=== PATIENT | female | born 1995 | race Caucasian/White ===

== ENCOUNTER 2019-12-10 21:44 | Outpatient (CLI) | payer OTHER, SELFPAY ==
[2019-12-10 21:58] VITALS: BP 123/80; PULSE 100; TEMP 37.7; O2SAT 98
[2019-12-10 22:04] VITALS: BMI 26.6
[2019-12-10 23:19] VITALS: BP 119/77; PULSE 93; TEMP 36.9; O2SAT 98
[2019-12-11 05:43] VITALS: BP 133/80; PULSE 119; TEMP 36.9; O2SAT 99
--- NOTE | 2019-12-11 06:15 | OB.TRI.NOTE ---
- Problem List (1) 38 weeks gestation of Status: Acute (2) Irregular contractions Status: Acute History of Present Illness Date of Service: 12/10/19 Was patient seen by the physician?: No Reason For Visit: RULE OUT LABOR Date of Service: 12/10/19 Final [place]: 12/19/19 Gestational age: 38 Weeks and 6 Days History of Present Illness: Patient is a at 38.5 weeks gestation that presents to triage for contractions off and on for most of the evening. Denies any loss of fluid, vaginal bleeding and stated positive movement. Allergies amoxicillin Adverse Reaction (Verified 12/10/19 22:05) Rash Review of Systems Constitutional: Denies: Fever Eyes: Denies: Blurred vision Cardiovascular: Denies: Chest Pain Respiratory: Denies: Cough, Shortness of Breath Gastrointestinal: Denies: Abdominal Pain Genitourinary: Denies: Dysuria Physical Exam Vitals: Vital Signs Temp Pulse BP Pulse Ox 98.4 F 93 119/77 98 12/10/19 23:19 12/10/19 23:19 12/10/19 23:19 12/10/19 23:19 General: Alert Cardiovascular: Regular rate Lungs: Normal air movement Abdomen: Soft, Non Tender, Gravid Neurological: Cranial nerves II-XII grossly intact Cervix Dilation (cm): 0.5 - RN exam Station: -3 Effacement (%): 70 NST - FHR Rate Baby A Baseline: 120 Variability:: Moderate Accelerations:: 15 x 15 Decelerations:: None NST Reactive:: Yes FHR Category:: Category I Uterine Activity:: TOCO- every 3-6 minutes. Palpate mild and relaxed in between Impression/Plan at 38.5 weeks gestation to rule out labor A/P Category 1 tracing NST reactive Monitor and recheck for cervical change CE- 0.5/70/-3 (unchanged) Discharge home with labor precautions
[2019-12-11 07:12] VITALS: BP 118/79; PULSE 109; TEMP 36.3
== END 2019-12-10 23:30 | disposition home or self-care (01) ==
LOC: WPOUT 21:51 → OBT 21:54
PROVIDERS: Visit Provider Advanced Practice Midwife
DX: Z34.03 Encounter for supervision of normal first pregnancy, third trimester (principal); Z3A.38 38 weeks gestation of pregnancy
CPT/HCPCS: 59025; 59050; 99218; G0378

== ENCOUNTER 2019-12-11 08:05 | Inpatient (IN) | payer OTHER, SELFPAY ==
[2019-12-10 22:04] VITALS: BMI 26.6
[2019-12-11] VITALS (60 sets, daily range): BP systolic 97–181; BP diastolic 53–102; PULSE 81–129; RESP 18; TEMP 35.9–38.5; O2SAT 91–100; BMI 26.6
--- NOTE | 2019-12-11 06:25 | OB.TRI.HP_ITS ---
- Problem List (1) 38 weeks gestation of Status: Acute (2) Irregular contractions Status: Acute History of Present Illness Date of Service: 12/11/19 Was patient seen by the physician?: No Reason For Visit: R/O LABOR Date of Service: 12/11/19 Final [place]: 12/19/19 Gestational age: 38 Weeks and 6 Days History of Present Illness: Patient is a at 38.6 weeks gestation that returns to triage for increasing frequency and pain with contractions. Denies any loss of fluid or vaginal bleedi ng. Discharged from triage last evening and had no cervical change. Allergies amoxicillin Adverse Reaction (Verified 12/10/19 22:05) Rash Review of Systems Constitutional: Denies: Chills, Fever Cardiovascular: Denies: Chest Pain Respiratory: Denies: Cough, Shortness of Breath Genitourinary: Denies: Dysuria Physical Exam General: Alert, Oriented x3 Cardiovascular: Regular rate Lungs: Normal air movement Abdomen: Soft, Non Tender, Gravid Neurological: Cranial nerves II-XII grossly intact NST - FHR Rate Baby A Baseline: 135 Variability:: Moderate Accelerations:: 15 x 15 Decelerations:: None NST Reactive:: Yes FHR Category:: Category I Uterine Activity:: 3-5 MINUTTES Impression/Plan at 38.6 weeks gestation for rule out labor A/P Category 1 tracing NST reactive CE- 2/70/-2 (changed from earlier) Continue to monitor and recheck for cervical change
--- NOTE | 2019-12-11 08:13 | PCM.HP.OB ---
- Problem List (1) 38 weeks gestation of Status: Acute History Date of Admission: 12/11/19 Final [place]: 12/19/19 Gestational age: 38 Weeks and 6 Days History of this : This is a 24 year-old, G [1], P [0], at 38.6 weeks gestational age that presents in spontaneous labor. Patient reports contractions since yesterday. She came into triage last night and made no cervical change and was discharged home. Patient returns this morning for an increase in frequency and intensity of contractions. Denies any loss of fluid or vaginal bleeding. Positive movement. has been uncomplicated. Allergies amoxicillin Adverse Reaction (Verified 12/11/19 08:10) Rash Home Medications: Home Medications Ascorbic Acid [Vitamin C] 500 mg PO DAILY 12/10/19 Ferrous Sulfate [Iron] 325 mg PO DAILY 12/10/19 Fluticasone 0.05% [Flonase Nasal [place]] 1 spray NASAL PRN PRN 12/10/19 Pnv No.95/Ferrous Fum/Folic AC [ Caplet] 1 tab PO DAILY 12/10/19 Number of Fetus(es): 1 NST - FHR Rate Baby A Baseline: 135 Variability:: Moderate Accelerations:: 15 x 15 Decelerations:: None NST Reactive:: Yes FHR Category:: Category I Uterine Activity:: 3 minutes- palpate mild to moderate and relaxed in between History Past Pregnancies: Past Pregnancies Delivery Date Name GA/ Weeks Outcome Route Wt Infant Sex Labor Length Anesthesia Delivery Location Provider FOB Labs: B + Rubella- immune HB- HC- RPR- NR HIV-NR GC/CH- neg GBS- negative COVID- 19- unknown Expected Delivery Method: Spontaneous Vaginal Review of Systems Constitutional: Denies: Chills, Fever Cardiovascular: Denies: Chest Pain Respiratory: Denies: Cough, Shortness of Breath Gastrointestinal: Denies: Abdominal Pain Genitourinary: Denies: Dysuria Neurological: Denies: Headaches Physical Exam General: Alert, Oriented x3 Cardiovascular: Regular rate Lungs: Normal air movement Abdomen: Soft, Non Tender, Gravid Neurological: Cranial nerves II-XII grossly intact Presentation: Cephalic Cervix Dilation (cm): 3 - resource room special education teacher Station: -1 Effacement (%): 80 Assessment/Plan All Active Problems 38 weeks gestation of (Acute) This is a 24 year-old, G [1], P [0], at 38.6 weeks gestational age in spontaneous labor. A/P CE /- (change from /) Admit to labor and delivery EFM Routine labs IV fluids per policy GBS negative Pain medication when indicated Anticipate Dr. Henriquez notified and is collaborating physician
[2019-12-11] MEDS: Lactated Ringers 1,000 ML 200 ML IV ×2 (08:35→14:19)
[2019-12-11] MEDS: Lactated Ringers 500 ML 999 ML IV (08:44)
[2019-12-11 08:51] LABS: Absolute Lymphocyte Count 0.87 X10^3/uL (0.83-4.51); Absolute Neutrophil Count 14.3 X10^3/uL (2.0-7.7); Basophil# 0.04 X10^3/uL; Basophil% 0.2 % (0-1); Eosinophil# 0.01 X10^3/uL; Eosinophils% 0.1 % (0-5); Hematocrit 38.5 % (37-47); Hemoglobin 12.3 g/dL (12.0-15.0); Lymphocyte # 0.87 X10^3/ul (4.0); Lymphocyte % 5.4 % (19-41); Mean Corp Hgb Conc 31.9 g/dL (32-36); Mean Corpuscular Hgb 26.3 pg (27.0-32.0); Mean Corpuscular Volume 82.3 fL (81-99); Mean Platelet Vol. 12.7 fl (6.2-12.0); Monocyte# 1.02 X10^3/uL; Monocyte% 6.3 % (0-10); NRBC Flagged by Analyzer 0 % (0-5); Neutrophil # 14.25 X10^3/uL (2.7-7.7); Neutrophil % 87.6 % (47-70); Platelet Count 199 K/mm3 (150-450); RBC Distribution Width CV 15.7 % (11.6-14.6); Red Blood Count 4.68 M/mm3 (4.2-5.4); White Blood Count 16.3 K/mm3 (4.4-11.0)
[2019-12-11] MEDS: fentaNYL-bupivacaine (epidural) 100 ML BAG EPIDURAL ×2 (09:35→13:30)
--- NOTE | 2019-12-11 10:30 | PCM.PN.OB ---
Patient Problems: Active and Suspected Problems 38 weeks gestation of (Acute) Subjective: Resting in bed comfortable with epidural. Partner at bedside. Objective: FHR 125, moderate variability, accels, no decels, Category 1 TOCO: q4-5 minutes, irregular, mild-moderate Cervix 4cm/90/-1 IBOW. AROM for moderate amount of clear fluid. ROP position - Physical Exam Vitals/I&O's: Vital Signs Pulse BP Pulse Ox 101 H 117/65 99 12/11/19 10:19 12/11/19 10:19 12/11/19 10:07 Weight: 146 lb Body Mass Index (BMI) 26.6 Intake and Output for Last 24 Hours 12/09/19 12/10/19 12/11/19 23:59 23:59 23:59 Intake Total 500 / 500 Balance 500 / 500 Laboratory Results 12/11/19 08:35: WBC 16.3 H, RBC 4.68, Hgb 12.3, Hct 38.5, MCV 82.3, MCH 26.3 L, MCHC 31.9 L, RDW Std Deviation 47.0 H, RDW Coeff of Frankie 15.7 H, Plt Count 199, MPV 12.7 H, Immature Gran % (Auto) 0.400, Neut % (Auto) 87.6 H, Lymph % (Auto) 5.4 L, Nash % (Auto) 6.3, Eos % (Auto) 0.1, Baso % (Auto) 0.2, Absolute Neuts (auto) 14.3 H, Absolute Lymphs (auto) 0.87, Nucleated RBC % 0 12/11/19 08:35: Blood Type Pending, Antibody Screen Pending Current Medications Acetaminophen (Acetaminophen 325 Mg Tablet) 325 - 650 mg PO Q4H PRN PRN PRN Reason: Pain Score 1-3 Al Hydroxide/Mg Hydroxide (Mag Hydrox/Al Hydrox/Simeth 30 Ml Udc) 15 - 30 ml PO Q4H PRN PRN PRN Reason: INDIGESTION Citric Acid/Sodium Citrate (Sodium Citrate/Citric Acid 30 Ml Udc) 30 ml PO X1 PRN PRN Reason: Section Fentanyl Citrate (Fentanyl 100 Mcg/2 Ml Ampul) 25 - 50 mcg IV Q2H PRN PRN PRN Reason: Pain Score 4-10 Lactated Ringer's () 500 mls @ 999 mls/hr IV .Q31M PRN PRN Reason: Epidural Last Infusion: 12/11/19 09:52 Dose: Infused Documented by: Lactated Ringer's () 500 mls @ 999 mls/hr IV .Q31M PRN PRN Reason: Corrective Measures Lactated Ringer's () 1,000 mls @ 50 mls/hr IV .Q20H BUTCH Last Admin: 12/11/19 08:35 Dose: 200 mls/hr Documented by: Ondansetron HCl (Ondansetron 4 Mg/2 Ml Vial) 4 mg IV Q4H PRN PRN PRN Reason: NAUSEA Prochlorperazine Edisylate (Prochlorperazine 10 Mg/2 Ml Vial) 10 mg IV Q6H PRN PRN PRN Reason: NAUSEA Sodium Chloride (0.9% Saline Lock 10 Ml Syringe) 10 - 40 ml IV X1 PRN PRN Reason: SALINE FLUSH Medical Necessity - Tobacco Use Smoking Status: Never smoker Assessment/Plan All Active Problems 38 weeks gestation of (Acute) A:Active labor, progressing Category 1 FHT P: 1) AROM 2) Epidural for pain management 3) ROP, positional changes 4) [facility] physician and notified of patient status
[2019-12-11] MEDS: Oxytocin 30 units/NS 500 ml 30 UNITS/500 ML IV.SOLN IV (11:40)
[2019-12-11 12:15] LABS: Bacteria 0 SEEN /hpf (None Seen); Mucous, Urine 0 SEEN /hpf (<or=2+); Red Blood Cells-Urine 0 SEEN /hpf (0-5); Squamous Epithelial Cells - UA 0 SEEN /hpf (5-10); White Blood Cells 0 SEEN /hpf (0-5)
[2019-12-11 12:20] LABS: Color, Urine Yellow (Yellow); Glucose, Dipstick Normal (Normal); Ketone-Dipstick 50 mg/dl (Negative); Leukocyte Esterase-Dipstick Negative /ul (Negative); Nitrite-Dipstick Negative (Negative); Occult Blood-Urine Negative /ul (Negative); Protein-Dipstick Negative (Negative); Specific Gravity, Urine 1.005 (1.002-1.030); Urine Bilirubin Dipstick Negative (Negative); Urine Clarity Sl. Cloudy (Clear); Urine Urobilinogen Normal (Normal)
[2019-12-11] MEDS: Oxytocin 30 units/NS 500 ml 30 UNITS/500 ML IV.SOLN 334 UNITS IV (18:08)
--- NOTE | 2019-12-11 18:37 | PCM.OPRPT ---
Problem List (1) Vaginal delivery Status: Acute (2) First degree perineal laceration Status: Acute (3) Perineal laceration of labia Status: Acute Vaginal Delivery Maternal Presentation: Active Labor Amniotic Membrane Rupture Type: Artificial Amniotic Fluid Description: Clear Final [place]: 12/19/19 Final [place] Source: [place] <20 weeks Gestational age: 38 Weeks and 6 Days Date of Procedure: 12/11/19 Pre-Operative Diagnosis: Active labor Post-Operative Diagnosis: Surgery/ Procedure Performed: Spontaneous Vaginal Delivery Type of Anesthesia: Epidural Description of Procedure: Progressed to complete, epidural effective for pain management. of viable female infant at 1803. APGARS 9,9. Infant head delivered with body forthcoming. placed on maternal abdomen, strong cry. Mouth and nares suctioned for secretions.Terminal meconium. Pitocin started for active 3rd stage management. Placenta delivered via berna, intact, 3 vessel cord. Perineum inspected and revealed first degree perineal laceration repaired with 3.0 vicryl rapide and bilateral labial lacerations repaired with 3.0 vicryl. Well approximated and hemostasis achieved. Fundus firm, EBL 300ml. Vaginal sweep completed by me. Sponge and instrument count correct. Mom and baby stable. Family bonding well. Planning to breastfeed. notified of patient delivery. Presentation: Vertex Placental Delivery Description: Spontaneous Placenta Disposition: [facility] Cord Vessel Description: 3 Vessels Cord Entanglement: None Estimated Blood Loss: 300 ml Infant A gender: Female (1 minute): 9 (5 minute): 9 Episiotomy Description: None Laceration: Perineal Extension/lac, 1st degree Medications given after delivery: IV Pitocin Complications: None
[2019-12-11] MEDS: Ibuprofen 600 MG Tablet PO (21:00)
[2019-12-12 00:02] VITALS: BP 108/58; PULSE 94; RESP 16; TEMP 36.6
[2019-12-12 04:31] VITALS: BP 110/72; PULSE 85; RESP 18; TEMP 36.7
[2019-12-12 04:52] LABS: Hematocrit 33.7 % (37-47); Hemoglobin 10.9 g/dL (12.0-15.0); Mean Corp Hgb Conc 32.3 g/dL (32-36); Mean Corpuscular Hgb 27.1 pg (27.0-32.0); Mean Corpuscular Volume 83.8 fL (81-99); Mean Platelet Vol. 12.9 fl (6.2-12.0); Platelet Count 181 K/mm3 (150-450); RBC Distribution Width CV 15.9 % (11.6-14.6); RBC Distribution Width SD 48.6 fl (35.1-43.9); Red Blood Count 4.02 M/mm3 (4.2-5.4); White Blood Count 16.2 K/mm3 (4.4-11.0)
[2019-12-12] MEDS: Ibuprofen 600 MG Tablet PO ×3 (08:14→21:46)
[2019-12-12] MEDS: Senna/Docusate Sodium 1 Tablet PO (08:14)
[2019-12-12 11:50] VITALS: BP 101/60; PULSE 97; RESP 18; TEMP 36.8
[2019-12-12] MEDS: Acetaminophen 500 MG Tablet 1000 MG PO ×2 (11:59→20:24)
--- NOTE | 2019-12-12 12:23 | NURSING ---
encouraged sanya sanchez
--- NOTE | 2019-12-12 12:40 | PCM.PN.OB ---
Patient Problems: Active and Suspected Problems 38 weeks gestation of (Acute) Vaginal delivery (Acute) First degree perineal laceration (Acute) Perineal laceration of labia (Acute) Subjective: Pain well controlled, average lochia - Physical Exam Vitals/I&O's: Vital Signs Temp Pulse Resp BP Pulse Ox 98.2 F 97 18 101/60 91 12/12/19 11:50 12/12/19 11:50 12/12/19 11:50 12/12/19 11:50 12/11/19 16:53 Oxygen Delivery Method Room Air Weight: 66.224 kg Body Mass Index (BMI) 26.6 Intake and Output for Last 24 Hours 12/10/19 12/11/19 12/12/19 23:59 23:59 23:59 Intake Total 3438.00 / 3438.00 Output Total 600 / 600 1050 / 1050 Balance 2838.00 / 2838.00 -1050 / -1050 General: Alert, Cooperative, No apparent distress Laboratory Results 12/12/19 04:40: WBC 16.2 H, RBC 4.02 L, Hgb 10.9 L, Hct 33.7 L, MCV 83.8, MCH 27.1, MCHC 32.3, RDW Std Deviation 48.6 H, RDW Coeff of Frankie 15.9 H, Plt Count 181, MPV 12.9 H Current Medications Acetaminophen (Acetaminophen 500 Mg Tablet) 1,000 mg PO Q8H PRN PRN PRN Reason: Pain Score 1-10 Last Admin: 12/12/19 11:59 Dose: 1,000 mg Documented by: Bisacodyl (Bisacodyl 10 Mg Suppository) 10 mg RECTAL UD PRN PRN Reason: If no BM Dibucaine (Dibucaine 30 Gm Tube) 1 applic TOPICAL TID PRN PRN; Protocol PRN Reason: Discomfort Hydrocortisone (Hydrocortisone 2.5% Crm) 1 applic TOPICAL TID PRN PRN; Protocol PRN Reason: Discomfort Ibuprofen (Ibuprofen 600 Mg Tablet) 600 mg PO Q6H PRN PRN PRN Reason: Pain Score 1-10 Last Admin: 12/12/19 08:14 Dose: 600 mg Documented by: Methylergonovine Maleate (Methylergonovine 0.2 Mg/Ml Ampul) 0.2 mg IM X1 PRN PRN Reason: Excess bleeding/uterine atony Ondansetron HCl (Ondansetron 4 Mg/2 Ml Vial) 4 mg IV Q4H PRN PRN PRN Reason: Nausea Senna/Docusate Sodium (Senna/Docusate Sodium 1 Tablet) 1 - 2 tablet PO DAILY PRN PRN PRN Reason: Constipation Last Admin: 12/12/19 08:14 Dose: 2 tablet Documented by: Simethicone (Simethicone 80 Mg Tablet) 80 mg PO PCHS PRN PRN Reason: Indigestion/Stomach pain Sodium Chloride (0.9% Saline Lock 10 Ml Syringe) 5 - 15 ml IV UD PRN PRN Reason: SALINE FLUSH Throat Lozenges (Benzocaine/Lanolin/Aloe Vera 1 Applic Each) 1 applic TOPICAL 4X/DAY PRN PRN; Protocol PRN Reason: Rectal Discomfort Last Admin: 12/12/19 00:30 Dose: 1 applic Documented by: Medical Necessity - Tobacco Use Smoking Status: Never smoker Assessment/Plan All Active Problems 38 weeks gestation of (Acute) Vaginal delivery (Acute) First degree perineal laceration (Acute) Perineal laceration of labia (Acute) day #1 status post vaginal delivery. and patient are doing well. Patient is working on breast-feeding. Likely discharge home tomorrow.
[2019-12-12 16:00] VITALS: BP 109/60; PULSE 82; RESP 18; TEMP 36.7
[2019-12-12 20:25] VITALS: BP 118/71; PULSE 95; RESP 16; TEMP 36.7
[2019-12-13 02:20] VITALS: BP 120/70; PULSE 84; RESP 18; TEMP 37
[2019-12-13] MEDS: Ibuprofen 600 MG Tablet PO (03:49)
[2019-12-13 07:35] VITALS: BP 115/78; PULSE 88; RESP 16; TEMP 36.9
--- NOTE | 2019-12-13 08:45 | DCINST_ITS ---
Discharge Diet: No Restrictions Discharge Activity: May Drive, May Shower May resume sexual activity in: 6 weeks Additional Instructions: If you experience any of the following, contact your healthcare provider. * Bleeding that soaks a pad every hour for 2 hours * Fever 100.4 or higher * Unrelieved incision or abdominal pain * Swelling, redness, discharge or bleeding from your incision or episiotomy site * Your incision begins to separate * Problems urinating (including inability to urinate or burning while urinating). * Visual changes * Severe headache * Flu-like symptoms * Pain or redness in one of both of your breasts * Pain, warmth, tenderness or swelling in your legs, especially the calf area * Frequent nausea and vomiting * Symptoms of depression or anxiety If you experience any of the following, call 911 or go to the nearest Emergency Room. * Chest pain * Problems breathing * Seizure activity * Partial or complete paralysis of a body part, slurred speech, weakness or drooping of the face, or a sudden inability to walk or hold your balance Allergies/Adverse Reactions: Allergies amoxicillin Adverse Reaction (Verified 12/11/19 08:10) Rash Medications to take at Discharge Fluticasone 0.05% [Flonase Nasal [place]] 1 spray NASAL PRN PRN 12/10/19 Pnv No.95/Ferrous Fum/Folic AC [ Caplet] 1 tab PO DAILY 12/10/19 Acetaminophen [Tylenol] 1,000 mg PO Q8H PRN PRN tablet 12/13/19 Ibuprofen [Motrin] 600 mg PO Q6H PRN PRN tablet 12/13/19 Test Results: Test results from this visit will be discussed in further detail at your follow- up appointment, if applicable.
--- NOTE | 2019-12-13 08:45 | PCM.DCVAG ---
Discharge Diet: No Restrictions Discharge Activity: May Drive, May Shower May resume sexual activity in: 6 weeks Additional Instructions: If you experience any of the following, contact your healthcare provider. Bleeding that soaks a pad every hour for 2 hours Fever 100.4 or higher Unrelieved incision or abdominal pain Swelling, redness, discharge or bleeding from your incision or episiotomy site Your incision begins to separate Problems urinating (including inability to urinate or burning while urinating). Visual changes Severe headache Flu-like symptoms Pain or redness in one of both of your breasts Pain, warmth, tenderness or swelling in your legs, especially the calf area Frequent nausea and vomiting Symptoms of depression or anxiety If you experience any of the following, call 911 or go to the nearest Emergency Room. Chest pain Problems breathing Seizure activity Partial or complete paralysis of a body part, slurred speech, weakness or drooping of the face, or a sudden inability to walk or hold your balance Allergies/Adverse Reactions: Allergies amoxicillin Adverse Reaction (Verified 12/11/19 08:10) Rash Medications to take at Discharge Fluticasone 0.05% [Flonase Nasal [place]] 1 spray NASAL PRN PRN 12/10/19 Pnv No.95/Ferrous Fum/Folic AC [ Caplet] 1 tab PO DAILY 12/10/19 Acetaminophen [Tylenol] 1,000 mg PO Q8H PRN PRN tablet 12/13/19 Ibuprofen [Motrin] 600 mg PO Q6H PRN PRN tablet 12/13/19 Test Results: Test results from this visit will be discussed in further detail at your follow-up appointment, if applicable.
--- NOTE | 2019-12-13 08:45 | PCM.PN.OB ---
Patient Problems: Active and Suspected Problems 38 weeks gestation of (Acute) Vaginal delivery (Acute) First degree perineal laceration (Acute) Perineal laceration of labia (Acute) Subjective: No complaints - Physical Exam Vitals/I&O's: Vital Signs Temp Pulse Resp BP Pulse Ox 98.5 F 88 16 115/78 91 12/13/19 07:35 12/13/19 07:35 12/13/19 07:35 12/13/19 07:35 12/11/19 16:53 Oxygen Delivery Method Room Air Weight: 146 lb Body Mass Index (BMI) 26.6 Intake and Output for Last 24 Hours 12/11/19 12/12/19 12/13/19 23:59 23:59 23:59 Intake Total 3438.00 / 3438.00 Output Total 600 / 600 1050 / 1050 Balance 2838.00 / 2838.00 -1050 / -1050 General: Alert, Oriented x3 Abdomen: Soft, Non Tender, Non-Distended - ff mid & below umb Extremities: No Calf Tenderness Current Medications Acetaminophen (Acetaminophen 500 Mg Tablet) 1,000 mg PO Q8H PRN PRN PRN Reason: Pain Score 1-10 Last Admin: 12/12/19 20:24 Dose: 1,000 mg Documented by: Bisacodyl (Bisacodyl 10 Mg Suppository) 10 mg RECTAL UD PRN PRN Reason: If no BM Dibucaine (Dibucaine 30 Gm Tube) 1 applic TOPICAL TID PRN PRN; Protocol PRN Reason: Discomfort Hydrocortisone (Hydrocortisone 2.5% Crm) 1 applic TOPICAL TID PRN PRN; Protocol PRN Reason: Discomfort Ibuprofen (Ibuprofen 600 Mg Tablet) 600 mg PO Q6H PRN PRN PRN Reason: Pain Score 1-10 Last Admin: 12/13/19 03:49 Dose: 600 mg Documented by: Methylergonovine Maleate (Methylergonovine 0.2 Mg/Ml Ampul) 0.2 mg IM X1 PRN PRN Reason: Excess bleeding/uterine atony Ondansetron HCl (Ondansetron 4 Mg/2 Ml Vial) 4 mg IV Q4H PRN PRN PRN Reason: Nausea Senna/Docusate Sodium (Senna/Docusate Sodium 1 Tablet) 1 - 2 tablet PO DAILY PRN PRN PRN Reason: Constipation Last Admin: 12/12/19 08:14 Dose: 2 tablet Documented by: Simethicone (Simethicone 80 Mg Tablet) 80 mg PO PCHS PRN PRN Reason: Indigestion/Stomach pain Last Admin: 12/12/19 17:03 Dose: 80 mg Documented by: Sodium Chloride (0.9% Saline Lock 10 Ml Syringe) 5 - 15 ml IV UD PRN PRN Reason: SALINE FLUSH Throat Lozenges (Benzocaine/Lanolin/Aloe Vera 1 Applic Each) 1 applic TOPICAL 4X/DAY PRN PRN; Protocol PRN Reason: Rectal Discomfort Last Admin: 12/12/19 00:30 Dose: 1 applic Documented by: Medical Necessity - Tobacco Use Smoking Status: Never smoker Assessment/Plan All Active Problems 38 weeks gestation of (Acute) Vaginal delivery (Acute) First degree perineal laceration (Acute) Perineal laceration of labia (Acute) PPD#2 d/c home
[2019-12-13] MEDS: Acetaminophen 500 MG Tablet 1000 MG PO (12:33)
[2019-12-13 13:05] VITALS: BP 116/72; PULSE 80; RESP 16; TEMP 36.9
== END 2019-12-13 13:35 | disposition home or self-care (01) | DRG 807 ==
LOC: WPOUT 08:08 → WP 08:08
PROVIDERS: Advanced Practice Midwife; Obstetrics & Gynecology; Admitting Provider Advanced Practice Midwife; Visit Provider Advanced Practice Midwife
DX: O77.0 Labor and delivery complicated by meconium in amniotic fluid (principal); O70.0 First degree perineal laceration during delivery; Z3A.38 38 weeks gestation of pregnancy; Z37.0 Single live birth
CPT/HCPCS: 59025; 59050; 81001; 85025; 85027; 86850; 86900; 86901; 99218; J7120; G0378

== ENCOUNTER 2021-12-03 06:48 | Inpatient (IN) | payer OTHER, SELFPAY ==
[2021-12-03] VITALS (40 sets, daily range): BP systolic 71–131; BP diastolic 32–78; PULSE 58–108; RESP 12–18; TEMP 36.1–36.6; O2SAT 84–100; BMI 28.8
[2021-12-03] MEDS: Lactated Ringers 1,000 ML 50 ML IV (07:54)
[2021-12-03] MEDS: Oxytocin 30 units/NS 500 ml 30 UNITS/500 ML IV.SOLN IV (07:56)
[2021-12-03 08:03] LABS: Absolute Lymphocyte Count 1.41 X10^3/uL (0.83-4.51); Absolute Neutrophil Count 8.6 X10^3/uL (2.0-7.7); Basophil# 0.03 X10^3/uL; Basophil% 0.3 % (0-1); Eosinophil# 0.16 X10^3/uL; Eosinophils% 1.5 % (0-5); Hematocrit 35.5 % (37-47); Hemoglobin 11.3 g/dL (12.0-15.0); Lymphocyte # 1.41 X10^3/ul (0.83-4.51); Lymphocyte % 12.9 % (19-41); Mean Corp Hgb Conc 31.8 g/dL (32-36); Mean Corpuscular Hgb 25.2 pg (27.0-32.0); Mean Corpuscular Volume 79.1 fL (81-99); Mean Platelet Vol. 11.9 fl (6.2-12.0); Monocyte# 0.65 X10^3/uL; Monocyte% 5.9 % (0-10); NRBC Flagged by Analyzer 0 % (0-5); Neutrophil # 8.64 X10^3/uL (2.7-7.7); Neutrophil % 78.9 % (47-70); Platelet Count 265 K/mm3 (150-450); RBC Distribution Width CV 17.4 % (11.6-14.6); RBC Distribution Width SD 49.9 fl (35.1-43.9); Red Blood Count 4.49 M/mm3 (4.2-5.4); White Blood Count 10.9 K/mm3 (4.4-11.0)
--- NOTE | 2021-12-03 08:35 | PCM.HP.OB ---
HPI - General General Date of Admission: 12/03/21 HPI Narrative FARA CONNELLY, is a 26 F at 40.0 weeks gestation who presents for elective induction of labor. uncomplicated. Maternal Data Information [place] Calculator Estimated Delivery Date Method Current WG Current Estimate 12/03/21 Manual 40w 0d PFSH PFSH Home Medications fluticasone propionate 50 mcg/actuation nasal spray,suspension 1 spray NASAL PRN PRN Congestion 12/10/19 [History Last Taken 12/08/19 08:00] vit no.95-ferrous fumarate 28 mg-folic acid 800 mcg tablet 1 tab PO DAILY 12/10/19 [History Last Taken 12/10/19 08:00] acetaminophen 500 mg tablet 1,000 mg PO Q8H PRN PRN Pain Score 1-10 12/13/19 [Rx Last Taken Unknown] ibuprofen 600 mg tablet 600 mg PO Q6H PRN PRN Pain Score 1-10 12/13/19 [Rx Last Taken Unknown] Allergy/AdvReac Type Severity Reaction Status Date / Time amoxicillin AdvReac Rash Verified 12/11/19 08:10 Social History Smoking Status: Never smoker History Elective abortions Hx Para 0 Spontaneous abortions Hx # Term Pregnancies Ectopic pregnancies Hx # Pregnancies Multiple births # of living children NST FHR Rate Baby A Baseline: 135 Variability:: Moderate Accelerations:: 15 x 15 Decelerations:: None NST Reactive:: Yes FHR Category:: Category I Uterine Activity:: occasional ROS Eyes Eyes: Denies blurry vision, change in vision or spots in vision ENT HEENT: Denies dizziness or headache(s) Cardiovascular Cardiovascular: Denies abdominal pain, chest pain or dyspnea Respiratory/Chest Respiratory/Chest: Denies cough, dyspnea, shortness of breath at rest or shortness of breath with exertion Gastrointestinal Gastrointestinal: Denies abdominal pain, diarrhea or vomiting Genitourinary Genitourinary: Denies change in urinary stream, difficulty urinating or dysuria Musculoskeletal Musculoskeletal: Reports none Integumentary Integumentary: Denies rash Neurologic Neurologic: Denies dizziness, headache(s), memory loss or weakness Psychiatric Psychiatric: Reports none Vital Signs Vital Signs Vital Signs: 12/03/21 07:12 12/03/21 07:12 12/03/21 07:53 Pulse Rate 108 H Blood Pressure 131/78 H 126/73 H BP Systolic 131 126 BP Diastolic 78 73 12/03/21 07:53 Pulse Rate 98 Blood Pressure BP Systolic BP Diastolic Weight Weight: 157 lb 6 oz Body Mass Index (BMI) 28.8 Labs Labs Labs: Blood Type B POSITIVE Antibody Screen NEGATIVE Hct 35.5 % (37-47) L Hgb 11.3 g/dL (12.0-15.0) L Rhogam given: No Assessment & Plan (1) 40 weeks gestation of : (2) Elective induction of labor planned: PLAN: Plan Admit to labor and delivery Routine labs GBS negative Start IV fluids and run per orders Position changes- warm water immersion Pain medications if indicated Start Pitocin 2 mu/min and increase per policy Anticipate
[2021-12-03] MEDS: LACTATED RINGERS 500 ML 999 ML IV (10:45)
[2021-12-03] MEDS: fentaNYL-bupivacaine (epidural) 100 ML BAG EPIDURAL ×3 (11:28→17:38)
--- NOTE | 2021-12-03 12:46 | PCM.PN.BLA ---
Progress Note Patient seen at bedside. Comfortable with epidural. Physical Exam Const alert and no apparent distress General Appearance: cooperative and comfortable Exam Limitations: no limitations HEENT normocephalic Eyes General Eye: normal appearance of both eyes Neck full ROM General: normal visual inspection Chest Chest: symmetrical chest wall rise Resp normal respiratory effort and normal air movement Effort and Inspection: symmetric chest movement Auscultation: clear to auscultation bilaterally Cardio regular rate and regular rhythm GI normal to inspection, nondistended, normoactive bowel sounds Back/Spine normal ROM Extremity full ROM and no calf tenderness General Extremity: normal exam except as noted Skin no rashes or lesions noted Neuro CN's II-XII intact bilaterally Psych mental status grossly normal Assessment & Plan Assessment/Plan (1) Elective induction of labor planned: (2) 40 weeks gestation of : PLAN: Plan NST reactive, Cat. 1 tracing Continue Pitocin IV and titrate per orders AROM for moderate amount of clear fluid CE 4/60/-2 Anticipate
[2021-12-03] MEDS: Lactated Ringers 1,000 ML 200 ML IV ×2 (13:11→15:54)
--- NOTE | 2021-12-03 19:06 | OP.PCM_ITS ---
Problems Associated Problem List Diagnoses (1) 40 weeks gestation of : (2) Elective induction of labor planned: (3) intolerance to labor, delivered, current hospitalization: (4) Non-reassuring heart rate or rhythm affecting management of fetus: Report of Operation Date of Procedure: 12/03/21 Pre-Operative Diagnosis: 40 week gestation, elective IOL planned, non reassuring heart tracing Post-Operative Diagnosis: As above Surgery/Procedure Performed:: Stat PLTCS via pfannenstiel incision Description of Surgical Findings:: Indications: Pt was an elective 40 wk IOL. She progressed well in labor and made it to 10 cm. Once complete the FHT was 110 bpm with mod jh and accels. After pushing with 2 contractions the FHT was then 90 bpm for 15 min, and then 60 bpm for 1-2 min and at that time I was called at about 1754. The FHT was 60 bpm for 4 min. Discussed over phone with CNM to turn off pitocin and take patient back to OR. I arrived at hospital and checked the patient back in the OR. She was found to be 10/100/0 station with caput present. Per CNM no descent with pushing. Recommended a stat section and the patient consented to proceed. Findings: Normal appearing uterus with bilateral adnexa. Clear fluid. Normal appearing placenta with 3VC. Vigorous VMI with apgars 8, 9. Surgeon: Kaye Paz machinery engineer: Martinez Angeles Type of Anesthesia: Epidural Special Medications: None Specimen's removed: Placenta Drains: Ng Estimated Blood Loss (mL): 500 Fluids Replaced: 1500 mL Description of Procedure: Patient was taken back to the operating room where an epidural anesthesia was found to be adequate. She was prepped and draped in the dorsal position with a leftward tilt. A Pfannenstiel skin incision was made with a scalpel and this was carried down to the underlying layer of fascia. The fascia was incised in the midline and extended laterally using blunt dissection. The rectus muscles w ere the midline. The peritoneum was entered bluntly. The incision was extended bluntly. A bladder blade was inserted. A low transverse incision was made on the uterus with a scalpel and the uterine incision was extended bluntly. The head was flexed and brought to the hysterotomy using assistance with a hand from below. A vigorous viable male was delivered easily through the hysterotomy without any force or delay. The cord was clamped and cut and the infant was handed off to the waiting nursery staff. Uterus was exteriorized. A left cervical extension was noted and this was closed with Vicryl in a running locked fashion. The hysterotomy was closed with Vicryl in a running locked fashion. Hemostasis was noted. The uterus was placed back into the abdomen. Hamzah was placed over the extension and the hysterotomy. The peritoneum was closed with Vicryl in a running fashion. The rectus muscles were noted to be hemostatic. The fascia was closed with strata fix in a running fashion. The subcutaneous space was irrigated and made hemostatic with the Bovie cautery. The subcutaneous space was reapproximated Vicryl. The skin was closed with Monocryl in subcuticular fashion. A silver dressing was placed. Instrument, sponge, needle counts were correct. The patient was taken to recovery in stable condition. The visitor services information assistant Martinez Angeles MD was present for the entire case: he assisted with prepping the patient, delivery of , and closure. Grafts/Implants Used: None Procedure Start Time: 18:12 Procedure Stop Time: 18:57 Complications None Admit VTE Documentation VTE Present on Admission: No VTE Mechan Device Prophylaxis: SCD's
[2021-12-03] MEDS: Oxytocin 30 units/NS 500 ml 30 UNITS/500 ML IV.SOLN 167 UNITS IV (19:43)
[2021-12-03] MEDS: Lactated Ringers 1,000 ML 100 ML IV (19:45)
[2021-12-03] MEDS: Ketorolac 30 MG/ML Syringe IV (20:03)
[2021-12-03] MEDS: Acetaminophen 500 MG Tablet PO (23:03)
[2021-12-04] VITALS (7 sets, daily range): BP systolic 103–121; BP diastolic 55–69; PULSE 73–118; RESP 15–18; TEMP 36.2–36.8; O2SAT 96–100
[2021-12-04] MEDS: Ketorolac 30 MG/ML Syringe IV ×3 (02:04→13:42)
[2021-12-04] MEDS: Acetaminophen 500 MG Tablet PO ×3 (05:27→19:58)
[2021-12-04 06:01] LABS: Hematocrit 31.3 % (37-47); Mean Corp Hgb Conc 31.9 g/dL (32-36); Mean Corpuscular Hgb 25.4 pg (27.0-32.0); Mean Corpuscular Volume 79.4 fL (81-99); Mean Platelet Vol. 11.6 fl (6.2-12.0); Platelet Count 190 K/mm3 (150-450); RBC Distribution Width CV 17.3 % (11.6-14.6); Red Blood Count 3.94 M/mm3 (4.2-5.4); White Blood Count 12.2 K/mm3 (4.4-11.0)
--- NOTE | 2021-12-04 06:15 | NURSING ---
Vital signs were put on hold and were documented under duramorph checks for majority of the shift. Duramorph checks complete after 12 hours and vital signs will return to active starting 0700 for remainder of stay.
--- NOTE | 2021-12-04 07:50 | PCM.PROGNOTE ---
Subjective Subjective patient seen at bedside, doing well. Patient reports good pain control. lochia mild. Voiding w/o difficulty. Objective Data Objective Data Vital Signs: Vital Signs Temp Pulse Resp BP Pulse Ox O2 Del Method 97.2 F L 106 H 15 116/55 L 100 Room Air 12/04/21 05:23 12/04/21 05:23 12/04/21 05:23 12/04/21 05:23 12/04/21 05:23 12/04/21 05:23 Oxygen Delivery Method Room Air Weight: 71.384 kg Body Mass Index (BMI) 28.8 Intake & Output: Intake and Output for Last 24 Hours 12/02/21 12/03/21 12/04/21 23:59 23:59 23:59 Intake Total 3899.37 / 3899.37 1500 / 1500 Output Total 650 / 650 1250 / 1250 Balance 3249.37 / 3249.37 250 / 250 Lab / Micro Data Result Diagrams: 12/04/21 05:52 Labs: Laboratory Results - last 24 hr 12/03/21 07:40: WBC 10.9, RBC 4.49, Hgb 11.3 L, Hct 35.5 L, MCV 79.1 L, MCH 25.2 L, MCHC 31.8 L, RDW Std Deviation 49.9 H, RDW Coeff of Frankie 17.4 H, Plt Count 265, MPV 11.9, Immature Gran % (Auto) 0.500, Neut % (Auto) 78.9 H, Lymph % (Auto) 12.9 L, [place] % (Auto) 5.9, Eos % (Auto) 1.5, Baso % (Auto) 0.3, Absolute Neuts (auto) 8.6 H, Absolute Lymphs (auto) 1.41, Nucleated RBC % 0 12/03/21 07:40: Blood Type B POSITIVE, Antibody Screen NEGATIVE 12/04/21 05:52: WBC 12.2 H, RBC 3.94 L, Hgb 10.0 L, Hct 31.3 L, MCV 79.4 L, MCH 25.4 L, MCHC 31.9 L, RDW Std Deviation 50.0 H, RDW Coeff of Frankie 17.3 H, Plt Count 190, MPV 11.6 Physical Exam Narrative dressing dry and intact. Abdomen soft, appropriately tender. non distended. fundus firm Const alert and oriented x3 General Appearance: cooperative HEENT normocephalic Neck General: normal visual inspection GI soft to palpation and non-distended GI Narrative: Fundus firm Extremity normal to inspection and no calf tenderness Skin no rashes or lesions noted Neuro oriented x3 and CN's II-XII intact bilaterally Psych mental status grossly normal Assessment & Plan Assessment/Plan (1) Delivery by section: PLAN: Plan POD# 1 , Doing well Routine care pain mgmt monitor VS ambulation
[2021-12-04] MEDS: 0.9% Saline Lock 10 ML Syringe IV ×2 (07:53→13:43)
--- NOTE | 2021-12-04 09:24 | NURSING ---
student charting reviewed.
[2021-12-04] MEDS: Senna/Docusate Sodium 1 Tablet PO (11:53)
[2021-12-04] MEDS: Ibuprofen 600 MG Tablet PO (21:06)
[2021-12-05 01:40] VITALS: BP 111/57; PULSE 93; RESP 15
[2021-12-05] MEDS: Acetaminophen 500 MG Tablet PO ×2 (02:30→09:32)
[2021-12-05] MEDS: Ibuprofen 600 MG Tablet PO ×2 (03:13→09:34)
[2021-12-05 08:13] VITALS: BP 129/75; PULSE 106; RESP 18; TEMP 36.7; O2SAT 97
[2021-12-05] MEDS: Senna/Docusate Sodium 1 Tablet PO (09:32)
--- NOTE | 2021-12-05 10:25 | PCM.PN.OB ---
Subjective Subjective Doing well per patient and nursing staff. Ambulating and taking PO without difficulty. Voiding and passing flatus. Pain controlled. , services for assistance. Denies headache, visual changes, chest pain, shortness of breath, leg pain or increased bleeding. Lochia normal. Objective Data Objective Data Vital Signs: Vital Signs Temp Pulse Resp BP Pulse Ox O2 Del Method 98.0 F 106 H 18 129/75 H 97 Room Air 12/05/21 08:13 12/05/21 08:13 12/05/21 08:13 12/05/21 08:13 12/05/21 08:13 12/05/21 08:13 Oxygen Delivery Method Room Air Weight: 157 lb 6 oz Body Mass Index (BMI) 28.8 Intake & Output: Intake and Output for Last 24 Hours 12/03/21 12/04/21 12/05/21 23:59 23:59 23:59 Intake Total 3899.37 / 3899.37 2215.63 / 2215.63 Output Total 650 / 650 1400 / 1400 400 / 400 Balance 3249.37 / 3249.37 815.63 / 815.63 -400 / -400 Lab / Micro Data Result Diagrams: 12/04/21 05:52 ROS Constitutional Constitutional: Reports systems reviewed and no addt'l complaints, except as documented; Denies headache(s) Eyes Eyes: Denies acute decrease in peripheral vision, blurry vision or change in vision ENT HEENT: Reports systems reviewed and no addt'l complaints, except as documented Cardiovascular Cardiovascular: Denies chest pain or dizziness Respiratory/Chest Respiratory/Chest: Denies cough, dyspnea, dyspnea on exertion, shortness of breath at rest or shortness of breath with exertion Gastrointestinal Gastrointestinal: Denies abdominal pain, diarrhea, nausea or vomiting Genitourinary Genitourinary: Denies abdominal discomfort Musculoskeletal Musculoskeletal: Denies limited range of motion Integumentary Integumentary: Reports systems reviewed and no addt'l complaints, except as documented Neurologic Neurologic: Reports systems reviewed and no addt'l complaints, except as documented Psychiatric Psychiatric: Reports systems reviewed and no addt'l complaints, except as documented Endocrine Endocrinology: Reports systems reviewed and no addt'l complaints, except as documented Hematologic/Lymphatic Hematologic/Lymphatic: Reports systems reviewed and no addt'l complaints, except as documented Allergic/Immunologic Allergic/Immunologic: Reports systems reviewed and no addt'l complaints, except as documented Physical Exam Const alert and oriented x3 General Appearance: cooperative Orientation / Consciousness: awake, oriented to person, oriented to place and oriented to time Exam Limitations: no limitations HEENT normocephalic Head and Scalp: normal to inspection, normocephalic and atraumatic Face and Sinus: normal facial exam Eyes General Eye: normal appearance of both eyes Neck full ROM Chest Chest: symmetrical chest wall rise Resp normal respiratory effort and normal air movement Auscultation: clear to auscultation bilaterally Cardio regular rate, regular rhythm, S1 normal heart sound, S2 normal heart sound, no murmurs, no rub, no gallops and no clicks GI normal to inspection, nondistended, normoactive bowel sounds and non-tender GI Narrative: Dressing dry and intact. Auscultation: normoactive bowel sounds Rectal Exam: Negative for excoriation appearance of the vagina normal Bladder / Kidney Exam: no CVA tenderness Back/Spine normal ROM Extremity normal to inspection and full ROM Skin no rashes or lesions noted Neuro oriented x3, CN's II-XII intact bilaterally and moves all extremities Sensorium / Orientation: awake, alert and oriented to person Motor Exam: clonus absent Deep Tendon Reflexes: Rt Patellar (L4): 2+ and Lt Patellar (L4): 2+ Assessment & Plan (1) Delivery by section: PLAN: Plan 1) Routine PP and postoperative care 2) Vitals stable 3) I&O 4) Pain management 5) Follow up in 1-2 weeks for incision check and 6 weeks for PP visit
--- NOTE | 2021-12-05 10:28 | PCM.DC.SUM ---
Providers Date of Admission: 12/03/21 Reason For Visit: PRIMARY Diagnosis Discharge Diagnosis (1) Delivery by section: Status: Acute Plan 1) Routine PP and postoperative care 2) Vitals stable 3) I&O 4) Pain management 5) Follow up in 1-2 weeks for incision check and 6 weeks for PP visit Medications at Discharge Home Medications vit no.95-ferrous fumarate 28 mg-folic acid 800 mcg tablet 1 tab PO DAILY 12/10/19 acetaminophen 500 mg tablet 500 - 1,000 mg PO Q6H PRN PRN Pain Score 1-3 #0 tabs 12/05/21 ibuprofen 600 mg tablet 600 mg PO Q6H #30 tabs 12/05/21 oxycodone 5 mg tablet 5 mg PO Q6H 7 days #10 tabs 12/05/21 sennosides 8.6 mg-docusate sodium 50 mg tablet (Stool Softener-Stimulant Laxative) 1 - 2 tab PO DAILY #30 tabs 12/05/21 Hospital Course Summary of Care Provided Hospital Course: Presented for elective induction of labor on 12/03/21. Primary LTCS due to non reassuring heart rate and intolerance of labor. course uncomplicated. Discharge home on PP day #2. Weight / BMI Weight Weight: 157 lb 6 oz Body Mass Index (BMI) 28.8 ABG / Lab / Microbiology Data Result Diagrams: 12/04/21 05:52 Meaningful Use Info Meaningful Use Diagnoses (Choose all that apply): None applicable Discharge Plan Admission Admit Date/Time: 12/03/21 06:48 Primary Reason for Your Visit: Section Attending Provider: Karen Ragland Instructions Patient Instructions: After a Discharge Orders/Prescriptions Prescriptions: New acetaminophen 500 mg Tablet 500 - 1,000 mg PO Q6H PRN PRN (Reason: Pain Score 1-3) Qty: 0 0RF sennosides-docusate sodium [Stool Softener-Stimulant Laxat] 8.6-50 mg Tablet 1 - 2 tab PO DAILY Qty: 30 0RF ibuprofen 600 mg Tablet 600 mg PO Q6H Qty: 30 0RF oxycodone 5 mg Tablet 5 mg PO Q6H 7 Days Qty: 10 0RF Continued PNV cmb#95-ferrous fumarate-FA 1 EACH tablet 1 tab PO DAILY Discontinued fluticasone propionate 1 SPRAY spray,suspension 1 spray NASAL PRN PRN (Reason: Congestion) acetaminophen 500 MG tablet 1,000 mg PO Q8H PRN PRN (Reason: Pain Score 1-10) 0RF ibuprofen 600 MG tablet 600 mg PO Q6H PRN PRN (Reason: Pain Score 1-10) 0RF Disposition Disposition (needs filled in before D/C Order can be placed): Home, Self Care
== END 2021-12-05 10:55 | disposition home or self-care (01) | DRG 788 ==
PROVIDERS: Admitting Provider Advanced Practice Midwife; Referring Provider Advanced Practice Midwife; Visit Provider Advanced Practice Midwife
DX: O36.8330 Maternal care for abnormalities of the fetal heart rate or rhythm, third trimester, not applicable or unspecified (principal); Z37.0 Single live birth; Z3A.40 40 weeks gestation of pregnancy
CPT/HCPCS: 59025; 59050; 85025; 85027; 86850; 86900; 86901; 99218; J7120; A4216; G0378; J3490

== ENCOUNTER 2023-09-24 07:57 | Emergency (ER) | payer OTHER, SELFPAY ==
[2023-09-24 07:57] VITALS: BP 108/90; BP 112/90; PULSE 111; PULSE 123; RESP 14; RESP 18; TEMP 37.2; O2SAT 98; BMI 21.3
--- NOTE | 2023-09-24 08:11 | EDS_ITS ---
HPI History of Present Illness Chief Complaint: Headache Narrative Narrative: 28-year-old female who denies significant past medical history presents with nausea, vomiting, and diarrhea that she has had since Tuesday, 4 days ago. In the last 24 hours she has vomited at least 6 times. She states that at 3:00 this morning, approximately 5 hours ago, she developed a headache. She is afraid to take anything for it because she still has a lot of nausea. Last menstrual period ended 2 days ago. She complains of continued nausea, and frontal headache. No chest pain or shortness of breath. No exacerbating or alleviating factors. PFSH PFS Medical History no medical history Home Medications ?Medication ?Instructions ?Recorded ?Last Taken ?Type vit no.95-ferrous 1 tab PO DAILY 12/10/19 12/10/19 08:00 History fumarate 28 mg-folic acid 800 mcg tablet acetaminophen 500 mg tablet 500 - 1,000 mg (1 - 2 x 500 mg) PO 12/05/21 Unknown Rx Q6H PRN PRN Pain Score 1-3 #0 tabs ibuprofen 600 mg tablet 600 mg PO Q6H #30 tabs 12/05/21 Unknown Rx oxycodone 5 mg tablet 5 mg PO Q6H 7 days #10 tabs 12/05/21 Unknown Rx sennosides 8.6 mg-docusate sodium 1 - 2 tab PO DAILY #30 tabs 12/05/21 Unknown Rx 50 mg tablet (Stool Softener-Stimulant Laxative) ondansetron 4 mg disintegrating 4 mg PO Q6H PRN nausea and 09/24/23 Unknown Rx tablet vomiting #12 tabs Allergy/AdvReac Type Severity Reaction Status Date / Time amoxicillin AdvReac Rash Verified 09/24/23 07:57 Social History Smoking Status: Never smoker ROS ROS ED ROS Narrative Constitutional: No fever, no chills. HEENT: No sore throat. No neck pain. No loss of vision. No rhinorrhea. Cardiovascular: No chest pain. No palpitations. No pedal edema. Respiratory: No cough, no shortness of breath. Abdominal: No abdominal pain. 5 days of nausea, vomiting, and diarrhea. Genitourinary: No dysuria. No hematuria. Musculoskeletal: No myalgias. No arthralgias. Neurologic: Positive frontal headache. No dizziness. No lightheadedness. Skin: No rash. No change in color. Psychiatric: No depression. No anxiety. EXAM Physical Exam Narrative Exam Narrative: Afebrile. Vital signs noted. HEENT: Normocephalic. Atraumatic. PERRL, EOMI. Neck soft and supple. No point tenderness or step off. Tacky mucous membranes. Cardiovascular: Positive tachycardia no murmurs, rubs, or gallops appreciated. Respiratory: No tachypnea. Lungs clear to auscultation bilaterally. Gastrointestinal: Abdomen soft, nontender, with normoactive bowel sounds. No rebound or guarding. Neurological: Awake. Alert. Nonfocal, nonlateralizing. Skin: No rash. Normal color. No pallor. Musculoskeletal: No pedal edema. Full range of motion extremities. Const Vital Signs: 09/24/23 07:57 09/24/23 07:57 09/24/23 09:57 Temperature 99 F Temperature Source Temporal Pulse Rate 111 H 123 H 69 Respiratory Rate 14 18 14 Blood Pressure 108/90 H 112/90 H 112/66 Blood Pressure Mean 96 97 81 Pulse Ox 98 98 100 Oxygen Delivery Method Room Air Room Air Room Air MDM MDM MDM Narrative Medical decision making narrative: Patient does not really have a history of migraines. She has more of a frontal headache. Concern is for dehydration which is in the differential diagnosis from all her nausea vomiting and diarrhea. She may have an electrolyte imbalance as well. No feel that she requires CT imaging of her brain as her headache just started, is gradually getting worse, and she has normal neurological examination. She will be bolused normal saline and removed ondansetron. I will also check her for . In the differential diagnosis as well would be pancreatitis but she does not really have a lot of epigastric tenderness. I reviewed her laboratory work and she has normal white count of 7.4, but she is mildly hemoconcentrated with a hemoglobin of 15.2, hematocrit 45.1. Platelet count normal at 258. Sodium slightly low at 134, BUN of 16 with creatinine 0.75. Glucose appropriately elevated at 81. AST is elevated at 43 which I think is nonspecific but other LFTs are within normal limits. Serum test is negative. After 1 L of fluids upon repeat examination at approximately 9:35 AM, she states her headache has slightly improved and that she is feeling mild improvement as well. She will be bolused another liter of normal saline and administered Toradol for her headache. I do feel that she would most likely be able to be discharged on her next reevaluation. Upon repeat evaluation at approximately 10:55 AM, after second liter, she states her headache is almost gone. There has been no vomiting in the ED. I wrote a prescription for Zofran ODT's. She will start a clear liquid diet and advance as tolerated. I feel she be discharged to follow-up with her primary care provider. Return instructions were reviewed. Disposition is discharged home in stable condition. History & Record Review Discussion w/independent historian: Patient Lab Data Attestation: I reviewed the patient's lab results. Labs: Laboratory Results - last 24 hr 09/24/23 08:45 WBC 7.4 RBC 5.63 H Hgb 15.2 H Hct 45.1 MCV 80.1 L MCH 27.0 MCHC 33.7 RDW Std Deviation 40.6 RDW Coeff of Frankie 13.9 Plt Count 258 MPV 11.8 Immature Gran % (Auto) 0.300 Neut % (Auto) 75.9 H Lymph % (Auto) 10.8 L [place]helps % (Auto) 11.1 H Eos % (Auto) 1.1 Baso % (Auto) 0.8 Absolute Neuts (auto) 5.6 Absolute Lymphs (auto) 0.80 L Nucleated RBC % 0 Sodium 134 L Potassium 3.9 Chloride 103 Carbon Dioxide 21.0 Anion Gap 10 BUN 16 Creatinine 0.75 Estim Creat Clear Calc 87.54 Est GFR (MDRD) Af Amer 117 Est GFR (MDRD) Non-Af 97 BUN/Creatinine Ratio 21.3 H Glucose 81 Calcium 9.1 Total Bilirubin 0.80 AST 43 H ALT 29 Alkaline Phosphatase 76 Total Protein 8.2 Albumin 3.9 Globulin 4.3 H Albumin/Globulin Ratio 0.9 Lipase 19 Serum , Qual NEGATIVE Discharge Plan Triage Chief Complaint: Headache ED Provider: Rene De Guzman Dx/Rx/DC Orders Clinical Impression: Nausea, vomiting and diarrhea, Headache, Intravascular volume depletion Instructions: ED Headache Unspecified, ED Vomit Diarrhea Nonspec Adult Prescriptions: New ondansetron 4 mg tablet,disintegrating 4 mg PO Q6H PRN (Reason: nausea and vomiting) Qty: 12 0RF No Action PNV cmb#95-ferrous fumarate-FA 1 EACH tablet 1 tab PO DAILY acetaminophen 500 mg Tablet 500 - 1,000 mg PO Q6H PRN PRN (Reason: Pain Score 1-3) Qty: 0 0RF sennosides-docusate sodium [Stool Softener-Stimulant Laxat] 8.6-50 mg Tablet 1 - 2 tab PO DAILY Qty: 30 0RF ibuprofen 600 mg Tablet 600 mg PO Q6H Qty: 30 0RF oxycodone 5 mg Tablet 5 mg PO Q6H 7 Days Qty: 10 0RF Primary Care Provider: Care Physician,No Primary Referrals: Mariza Styles DO [Med Staff - Fire Sprinkler Inspector] - 3-5 Days if not improving Care Physician,No Primary [Primary Care Provider] - Print Language: Malagasy Disposition Disposition: Home, Self Care
[2023-09-24] MEDS: Ondansetron 4 MG/2 ML Vial IV (08:44)
[2023-09-24] MEDS: 0.9% Normal Saline (1000mL) 1,000 ML 999 ML IV ×2 (08:44→10:06)
[2023-09-24 08:51] LABS: Absolute Neutrophil Count 5.6 X10^3/uL (2.0-7.7); Basophil# 0.06 X10^3/uL; Basophil% 0.8 % (0-1); Eosinophil# 0.08 X10^3/uL; Eosinophils% 1.1 % (0-5); Hematocrit 45.1 % (37-47); Hemoglobin 15.2 g/dL (12.0-15.0); Lymphocyte % 10.8 % (19-41); Mean Corp Hgb Conc 33.7 g/dL (32-36); Mean Corpuscular Volume 80.1 fL (81-99); Mean Platelet Vol. 11.8 fl (6.2-12.0); Monocyte# 0.82 X10^3/uL; Monocyte% 11.1 % (0-10); NRBC Flagged by Analyzer 0 % (0-5); Neutrophil # 5.62 X10^3/uL (2.7-7.7); Neutrophil % 75.9 % (47-70); Platelet Count 258 K/mm3 (150-450); RBC Distribution Width CV 13.9 % (11.6-14.6); RBC Distribution Width SD 40.6 fl (35.1-43.9); Red Blood Count 5.63 M/mm3 (4.2-5.4); White Blood Count 7.4 K/mm3 (4.4-11.0)
[2023-09-24 08:57] LABS: Internal QC Validated? YES +Cl - CLEAR BKGD; Pregnancy, Serum, hCG Quali. NEGATIVE Negative
[2023-09-24 09:09] LABS: ALB/GLOB Ratio 0.9 RATIO (0.9-2.4); AST(SGOT) 43 U/L (15-37); Alanine Aminotransfer ALT/SGPT 29 U/L (13-56); Albumin, Serum 3.9 g/dL (3.2-5.0); Alkaline Phosphatase 76 U/L (45-117); Anion Gap 10 (5-15); BUN 16 mg/dL (7-18); BUN/Creat Ratio 21.3 RATIO (10-20); Calcium,Total 9.1 mg/dL (8.5-10.1); Chloride 103 mmol/L (98-107); Creatinine, Serum 0.75 mg/dL (0.55-1.02); EST Glomerular Filtration Rate 97 mL/min (>60); Est Glom Filt Rate - Afr Amer 117 mL/min (>60); Estimated Creatinine Clearance 87.54 ml/min; Globulin 4.3 g/dL (2.2-4.2); Glucose 81 mg/dL (74-106); Lipase 19 U/L (13-75); Potassium 3.9 mmol/L (3.5-5.1); Protein, Total 8.2 g/dL (6.4-8.2); Sodium Level 134 mmol/L (136-145)
[2023-09-24 09:57] VITALS: BP 112/66; PULSE 69; RESP 14; O2SAT 100
[2023-09-24] MEDS: Ketorolac 15 MG/ML Vial IV (10:07)
[2023-09-24 11:00] VITALS: BP 100/66; PULSE 87; RESP 18; TEMP 36.8; O2SAT 100
== END 2023-09-24 11:09 | disposition home or self-care (01) ==
PROVIDERS: Emergency Provider Emergency Medicine; Visit Provider Emergency Medicine
DX: R11.2 Nausea with vomiting, unspecified (principal); R19.7 Diarrhea, unspecified; R51.9 Headache, unspecified; E86.9 Volume depletion, unspecified; Z79.899 Other long term (current) drug therapy
CPT/HCPCS: 80053; 83690; 84703; 85025; 96361; 96374; 96375; 99284; J7030; A4216; J2405